=== PATIENT | female | born 1995 | race Caucasian/White ===

== ENCOUNTER 2024-11-03 01:02 | Emergency (ER) | payer OTHER ==
[~2024-11-03] VITALS: Ht 165.1 cm; Wt 65.8 kg
[2024-11-03 03:29] VITALS: BP 126/77; TEMP 98; O2SAT 99
[2024-11-03] MEDS ORDERED: LIDO30AD10 TP (11:42)
[2024-11-03] MEDS ORDERED: IBUP-1955 PO (11:42)
== END 2024-11-03 04:14 | disposition home or self-care (01) ==
LOC: ER 01:05
DX: R45.1 Restlessness and agitation (principal); R45.89 Other symptoms and signs involving emotional state; F20.9 Schizophrenia, unspecified; Z59.00 Homelessness unspecified; Z87.09 Personal history of other diseases of the respiratory system

== ENCOUNTER 2024-11-03 10:39 | Emergency (ER) | payer OTHER ==
[~2024-11-03] VITALS: Ht 167.6 cm; Wt 65.8 kg
[2024-11-03] MEDS ORDERED: LIDO30AD10 TP (11:42)
[2024-11-03] MEDS ORDERED: IBUP-1955 PO (11:42)
[2024-11-03] MEDS ORDERED: IBUPROFEN 600 MG TABLET ONE (11:48)
[2024-11-03] MEDS: IBUPROFEN 600 MG TABLET PO ONE (11:52)
[2024-11-03 12:42] LABS: PREGNANCY TEST URINE QUAL NEGATIVE (NEGATIVE)
[2024-11-03 13:00] LABS: BASOPHILS % (AUTO) 0.2 % (0.0-2.0); EOSINOPHILS % (AUTO) 0.3 % (0.0-6.0); HEMATOCRIT 39 % (33-45); HEMOGLOBIN 12.6 g/dL (11.5-14.8); LYMPHOCYTES # (AUTO) 1.1 K/uL (0.8-4.8); LYMPHOCYTES % (AUTO) 11.3 % (20.0-44.0); MEAN CORPUSCULAR HEMOGLOBIN 26 PG (26.0-33.0); MEAN CORPUSCULAR HGB CONC 32 g/dl (31.0-36.0); MEAN CORPUSCULAR VOLUME 80 fL (82-100); MONOCYTES # (AUTO) 0.4 K/uL (0.1-1.30); NEUTROPHILS # (AUTO) 7.8 K/uL (1.8-8.9); NEUTROPHILS % (AUTO) 84.2 % (43.0-81.0); PLATELET COUNT (AUTO) 228 K/uL (150-450); RED BLOOD CELL COUNT(AUTO) 4.91 MIL/uL (4.0-5.2); RED CELL DISTRIBUTION WIDTH 15.5 % (11.5-15.0); WHITE BLOOD COUNT (AUTO) 9.3 K/uL (4.3-11.0)
[2024-11-03 13:23] LABS: ALANINE AMINOTRANSFERASE 17 U/L (12-78); ALCOHOL, BLOOD < 3 mg/dL (0-10); ALKALINE PHOSPHATASE 64 U/L (46-116); ASPARTATE AMINOTRANSFERASE 19 U/L (15-37); BILIRUBIN,DIRECT 0.2 mg/dL (0.0-0.2); BILIRUBIN,TOTAL 0.6 mg/dL (0.2-1.0); CARBON DIOXIDE 22 mmol/L (21-32); CHLORIDE 104 mmol/L (98-107); CREATININE 0.7 mg/dL (0.6-1.3); GLUCOSE 92 mg/dL (74-106); POTASSIUM 4.3 mmol/L (3.5-5.1); SODIUM SERUM 134 mmol/L (136-145); TOTAL PROTEIN, SERUM 7.5 g/dL (6.4-8.2); UREA NITROGEN, BLOOD 15 mg/dL (7-18)
[2024-11-03 13:26] LABS: ACETAMINOPHEN <10 ug/ml (10-30)
[2024-11-03 13:34] LABS: APPEARANCE,URINE CLEAR (CLEAR); BILIRUBIN,URINE NEGATIVE (NEGATIVE); BLOOD, URINE NEGATIVE Ery/uL (NEGATIVE); COLOR,URINE YELLOW (YELLOW); KETONES,URINE 1+ mg/dL (NEGATIVE); LEUKOCYTE ESTERASE ,URINE NEGATIVE (NEGATIVE); NITRITE, URINE NEGATIVE (NEGATIVE); PROTEIN,URINE NEGATIVE (NEGATIVE); UGLUCOSE NEGATIVE (NEGATIVE); UROBILINOGEN,URINE 0.2 EU/dL (0.2)
[2024-11-03 13:39] LABS: ADD URINE CULTURE NO; BACTERIA,URINE None seen /HPF (None Seen); RBC,URINE 0-2 /HPF (0-2); SQUAMOUS EPITHELIAL CELL,UR Rare /HPF (None Seen); WBC,URINE 0-2 /HPF (0-3)
[2024-11-03 13:50] LABS: AMPHETAMINE, URINE NEGATIVE (NEGATIVE); BARBITURATE, URINE NEGATIVE (NEGATIVE); BENZODIAZEPINE, URINE NEGATIVE (NEGATIVE); COCCAINE, URINE NEGATIVE (NEGATIVE); OPIATE, URINE NEGATIVE (NEGATIVE); PHENCYCLIDINE SCREEN,URINE NEGATIVE (NEGATIVE)
[2024-11-03 13:57] LABS: CANNABINOID, URINE POSITIVE (NEGATIVE)
[2024-11-03 19:55] VITALS: BP 150/98; TEMP 98; O2SAT 97
== END 2024-11-03 23:01 | disposition left against medical advice (07) ==
LOC: ER 10:45
DX: M54.6 Pain in thoracic spine (principal); F31.9 Bipolar disorder, unspecified; R10.2 Pelvic and perineal pain; F20.9 Schizophrenia, unspecified; Z20.822 Contact with and (suspected) exposure to COVID-19; Z59.00 Homelessness unspecified
CPT/HCPCS: 36415; 71045-TC; 80048-TC; 80076-TC; 81001; 84703-TC; 85025-TC; G0480